=== PATIENT | female | born 1955 | race Caucasian/White ===

== ENCOUNTER 2019-07-16 10:53 | Emergency (ER) | payer BC ==
[2019-07-16 11:38] VITALS: BP 145/87; PULSE 81
--- NOTE | 2019-07-16 11:44 | EDM.PDOC ---
ED HPI GENERAL MEDICAL PROBLEM - General Chief Complaint: Lower Extremity Injury/Pain Stated Complaint: LEFT ANKET TWISTED Time Seen by Provider: 07/16/19 10:55 Source of Information: Reports: Patient History Limitations: Reports: No Limitations - History of Present Illness INITIAL COMMENTS - FREE TEXT/NARRATIVE: HISTORY AND PHYSICAL: History of present illness: Patient is a 64-year-old female who presents to the ED today with concern of left ankle injury that occurred yesterday. Patient states that she was trying to kick an object out of her way in the living room when she twisted her left ankle and felt a "pop "patient states she did not completely fall and she caught herself. Patient states since then she has had pain of her left ankle. Patient states she did have a walking boot and crutches at home which she has been using since which has been helping alleviate some of her symptoms. Patient denies any dizziness or lightheaded before onset of twisting her ankle. Patient denies any other symptoms or concerns. Patient denies fever, chills, chest pain, shortness of breath, or cough. Denies headache, neck stiff ness, change in vision, syncope, or near syncope. Denies nausea, vomiting, abdominal pain, diarrhea, constipation, or dysuria. Has not noted any blood in urine or stool. Patient has been eating and drinking appropriately. Review of systems: As per history of present illness and below otherwise all systems reviewed and negative. Past medical history: As per history of present illness and as reviewed below otherwise noncontributory. Surgical history: As per history of present illness and as reviewed below otherwise noncontributory. Social history: See social history for further information Family history: As per history of present illness and as reviewed below otherwise noncontributory. Physical exam: General: Patient is alert, oriented, and in no acute distress. Patient sitting comfortably on exam table. HEENT: Atraumatic, normocephalic, pupils equal and reactive bilaterally, negative for conjunctival pallor or scleral icterus, mucous membranes moist, TMs normal bilaterally, throat clear, neck supple, nontender, trachea midline. No drooling or trismus noted. No meningeal signs. No hot potato voice noted. Lungs: Clear to auscultation, breath sounds equal bilaterally, chest nontender. Heart: S1S2, regular rate and rhythm without overt murmur Abdomen: Soft, nondistended, nontender. Negative for masses or hepatosplenomegaly. Negative for costovertebral tenderness. Pelvis: Stable nontender. Genitourinary: Deferred. Rectal: Deferred. Skin: Intact, warm, dry. No lesions or rashes noted. Extremities: There is mild edema of both the lateral and medial malleolus of the left ankle with mild to moderate pain with palpation of this area. Dorsalis pedis and posterior tibial pulses are grossly intact of the left lower extremity with capillary refill less than 2 seconds. Otherwise, atraumatic, negative for cords or calf pain. Neurovascular unremarkable. Neuro: Awake, alert, oriented. Cranial nerves II through XII unremarkable. Cerebellum unremarkable. Motor and sensory unremarkable throughout. Exam nonfocal. Notes: I did call and speak to orthopedic provider Dr. Penn and thoroughly discussed patient's case. He states that patient can continue to wear the boot but she is to be nonweightbearing. Patient does have crutches available with her today in the ED. Dr. Penn states he wants to see patient in the clinic tomorrow. I discussed this with patient and she states that she prefers to have a splint as she worries that she will try to put weight on her foot she continues to use the walking boot that she has. Discussed importance for follow-up with Dr. Penn in the clinic tomorrow. Voices understanding and is agreeable to plan of care. Denies any further questions or concerns at this time. Diagnostics: Foot and ankle XR Therapeutics: Posterior mold short splint placed by nursing staff Prescription: None Impression: Lateral malleolus fracture, left Plan: 1. Rest, ice, elevate the affected extremity. You can apply ice 15 minutes on, 15 minutes off. Do not put any weight on the foot until orthopedic evaluation. 2. Tylenol and/or Ibuprofen as directed for pain management or discomfort. 3. Follow up with the Orthopedic provider tomorrow as discussed. Call the clinic to establish appointment time for tomorrow. The number has been provided above. 4. Return to the ED as needed and as discussed. Definitive disposition and diagnosis as appropriate pending reevaluation and review of above. 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 Musculoskeletal History: Reports: Fracture Other Musculoskeletal History: left ankle Neurological History: Reports: None Psychiatric History: Reports: None Endocrine/Metabolic History: Reports: Hypothyroidism Hematologic History: Reports: None Immunologic History: Reports: None Oncologic (Cancer) History: Reports: None Dermatologic History: Reports: None - Past Surgical History Head Surgeries/Procedures: Reports: None Cardiovascular Surgical History: Reports: None Respiratory Surgical History: Reports: None Female Surgical History: Reports: Breast Biopsy, Hysterectomy Endocrine Surgical History: Reports: None Neurological Surgical History: Reports: None Oncologic Surgical History: Reports: None Social & Family History - Tobacco Use Smoking Status *Q: Never Smoker Second Hand Smoke Exposure: No - Caffeine Use Caffeine Use: Reports: None - Recreational Drug Use Recreational Drug Use: No Review of Systems - Review of Systems Review Of Systems: Comprehensive ROS is negative, except as noted in HPI. ED EXAM, GENERAL - Physical Exam Exam: See Below (see dictation) Course - Vital Signs Last Recorded V/S: Last Vital Signs Temp 97.8 F 07/16/19 11:36 Pulse 81 07/16/19 11:36 Resp 18 07/16/19 11:36 BP 145/87 H 07/16/19 11:36 Pulse Ox 98 07/16/19 11:36 Departure - Departure Time of Disposition: 12:53 Disposition: Home, Self-Care 01 Clinical Impression: Lateral malleolar fracture Qualifiers: Encounter type: initial encounter Fracture type: closed Fracture alignment: nondisplaced Laterality: left Qualified Code(s): S82.65XA - Nondisplaced fracture of lateral malleolus of left fibula, initial encounter for closed fracture - Discharge Information Referrals: Ayana Hammonds MD [Primary Care Provider] - Forms: ED Department Discharge Additional Instructions: The following information is given to patients seen in the emergency department who are being discharged to home. This information is to outline your options for follow-up care. We provide all patients seen in our emergency department with a follow-up referral. The need for follow-up, as well as the timing and circumstances, are variable depending upon the specifics of your emergency department visit. If you don't have a primary care physician on staff, we will provide you with a referral. We always advise you to contact your personal physician following an emergency department visit to inform them of the circumstance of the visit and for follow-up with them and/or the need for any referrals to a consulting specialist. The emergency department will also refer you to a specialist when appropriate. This referral assures that you have the opportunity for follow-up care with a specialist. All of these measure are taken in an effort to provide you with optimal care, which includes your follow-up. Under all circumstances we always encourage you to contact your private physician who remains a resource for coordinating your care. When calling for follow-up care, please make the office aware that this follow-up is from your recent emergency room visit. If for any reason you are refused follow-up, please contact the [facility] Emergency Department at and asked to speak to the emergency department charge nurse. [facility] [address] [place] [address] [address] [facility], Dr. Penn [facility] Professional [facility] [address] [place] [address], [address] [place] [address] 1. Rest, ice, elevate the affected extremity. You can apply ice 15 minutes on, 15 minutes off. Do not put any weight on the foot until orthopedic evaluation. 2. Tylenol and/or Ibuprofen as directed for pain management or discomfort. 3. Follow up with the Orthopedic provider tomorrow as discussed. Call the clinic to establish appointment time for tomorrow. The number has been provided above. 4. Return to the ED as needed and as discussed. Sepsis Event Note - Evaluation Sepsis Screening Result: No Definite Risk - Focused Exam Vital Signs: Vital Signs Temp Pulse Resp BP Pulse Ox 07/16/19 11:36 97.8 F 81 18 145/87 H 98 Date Exam was Performed: 07/16/19 Time Exam was Performed: 12:53
--- NOTE | 2019-07-16 12:03 | CR ---
Left ankle: 3 views left ankle were obtained. Comparison: Previous left ankle study of 12/15/09. Slightly displaced lateral malleolus fracture is seen. Soft tissue swelling is noted. Mild shifting of the tibia in a medial direction is seen compatible with unstable ankle mortise. Small plantar spur is noted. Minimal fracture off the posterior malleolus is also noted. Impression: 1. Lateral malleolus fracture with mild displacement and unstable ankle mortise. 2. Minimal fracture off the posterior malleolus. 3. Other findings as noted above. Diagnostic code #3 This report was dictated in [place] Standard Time
--- NOTE | 2019-07-16 12:29 | CR ---
Left foot: 2 views of the left foot were obtained. Comparison: No prior left foot exam. Joint space narrowing noted within the first MTP joint with minimal osteophytes. Small plantar spur is noted. No acute fracture or other abnormality is appreciated. Impression: 1. Degenerative change as noted above. 2. Small plantar spur. 3. Nothing acute is appreciated on two-view left foot exam. Diagnostic code #2 This report was dictated in [place] Standard Time
== END 2019-07-16 13:37 | disposition home or self-care (01) ==
LOC: MW.ED 10:53
DX: S82.65XA Nondisplaced fracture of lateral malleolus of left fibula, initial encounter for closed fracture (principal); E03.9 Hypothyroidism, unspecified; Z79.899 Other long term (current) drug therapy; X50.1XXA Overexertion from prolonged static or awkward postures, initial encounter
CPT/HCPCS: 29515; 73610-26-LT; 73610-LT; 73620-26-LT; 73620-LT; 99283-25

== ENCOUNTER 2019-07-18 12:25 | Day surgery (SDC) | payer BC ==
[2019-07-18] MEDS ORDERED: fentaNYL 100 MCG/2 ML SDV ONE ×3 (12:53→15:37)
[2019-07-18] MEDS ORDERED: Midazolam 1 MG/ML 2 ML SDV ONE (12:53)
[2019-07-18] MEDS ORDERED: Ondansetron 4 MG/2 ML SDV ONE (12:59)
[2019-07-18] MEDS ORDERED: Propofol 200 MG/20 ML SDV ONE ×2 (12:59→15:36)
[2019-07-18] MEDS ORDERED: Lidocaine 2% 5 ML SDV ONE (12:59)
[2019-07-18] MEDS ORDERED: Rocuronium 100 MG/10 ML Syringe ONE (13:00)
[2019-07-18] MEDS ORDERED: Lactated Ringers 1,000 ML IV SCH (13:15)
[2019-07-18] MEDS ORDERED: ceFAZolin 2 GM in Premix Bag 1 BAG IV SCH (13:15)
--- NOTE | 2019-07-18 13:33 | PCM.PREANE ---
Preanesthetic Assessment - Anesthesia/Transfusion/Family Hx Anesthesia History: Prior Anesthesia Without Reaction Family History of Anesthesia Reaction: No Transfusion History: No Prior Transfusion(s) Intubation History: Unknown - Review of Systems General: No Symptoms Pulmonary: No Symptoms Cardiovascular: No Symptoms Gastrointestinal: No Symptoms Neurological: No Symptoms Other: Reports: None - Physical Assessment Vital Signs: Last Vital Signs Temp 36.2 C 07/18/19 13:01 Pulse 68 07/18/19 13:01 Resp 16 07/18/19 13:01 BP 145/85 H 07/18/19 13:01 Pulse Ox 97 07/18/19 13:01 Height: 5 ft 10 in Weight: 83.915 kg ASA Class: 2 Mental Status: Alert & Oriented x3 Airway Class: Mallampati = 1 Dentition: Reports: Normal Dentition, [place](s) (lower right and left (back)) Thyro-Mental Finger Breadths: 3 Mouth Opening Finger Breadths: 3 ROM/Head Extension: Full Lungs: Clear to Auscultation, Normal Respiratory Effort Cardiovascular: Regular Rate, Regular Rhythm - Allergies Allergies/Adverse Reactions: Allergies Allergy/AdvReac Type Severity Reaction Status Date / Time No Known Allergies Allergy Verified 07/17/19 16:32 - Blood Blood Available: No - Anesthesia Plan Pre-Op Medication Ordered: None - Acknowledgements Anesthesia Type Planned: General Anesthesia (popliteal nerve block for postoperative pain control) Pt an Appropriate Candidate for the Planned Anesthesia: Yes Alternatives and Risks of Anesthesia Discussed w Pt/Guardian: Yes Pt/Guardian Understands and Agrees with Anesthesia Plan: Yes PreAnesthesia Questionnaire HEENT History: Reports: Allergic Rhinitis Other HEENT History: wears glasses Cardiovascular History: Reports: None Other Cardiovascular History: has had a heart murmur since childhood- very hard to hear- does not cause any symptoms Respiratory History: Reports: None Gastrointestinal History: Reports: Colon Polyp Genitourinary History: Reports: None 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 Musculoskeletal History: Reports: Fracture Other Musculoskeletal History: left ankle Neurological History: Reports: None Psychiatric History: Reports: None Endocrine/Metabolic History: Reports: Hypothyroidism Hematologic History: Reports: None Immunologic History: Reports: None Oncologic (Cancer) History: Reports: None Dermatologic History: Reports: None - Past Surgical History Cardiovascular Surgical History: Reports: None Respiratory Surgical History: Reports: None GI Surgical History: Reports: Appendectomy Female Surgical History: Reports: Breast Biopsy, Hysterectomy - SUBSTANCE USE Smoking Status *Q: Never Smoker Recreational Drug Use History: No - HOME MEDS Home Medications: Home Meds Levothyroxine Sodium [Levoxyl] 200 mcg PO QAM 09/09/15 [History] oxyCODONE HCl/Acetaminophen [Percocet 5-325 mg Tablet] 1 each PO Q6HR #28 tablet 07/18/19 [Rx] - CURRENT (IN HOUSE) MEDS Current Meds: Current Medications Cefazolin Sodium/Dextrose 2 gm (/ Premix) 50 mls @ 100 mls/hr IV ONCALL MERY Lactated Ringer's (Ringers, Lactated) 1,000 mls @ 100 mls/hr IV ASDIRECTED MERY Discontinued Medications Fentanyl (Sublimaze) Confirm Administered Dose 100 mcg .ROUTE .STK-MED ONE Stop: 07/18/19 12:54 Lidocaine (Xylocaine-Mpf 2%) Confirm Administered Dose 5 ml .ROUTE .STK-MED ONE Stop: 07/18/19 13:00 Midazolam HCl (Versed 1 Mg/Ml) Confirm Administered Dose 2 mg .ROUTE .STK-MED ONE Stop: 07/18/19 12:54 Ondansetron HCl (Zofran) Confirm Administered Dose 4 mg .ROUTE .STK-MED ONE Stop: 07/18/19 13:00 Propofol (Diprivan 20 Ml) Confirm Administered Dose 200 mg .ROUTE .STK-MED ONE Stop: 07/18/19 13:00 Rocuronium [place] (Zemuron) Confirm Administered Dose 100 mg .ROUTE .STK-MED ONE Stop: 07/18/19 13:01
[2019-07-18] MEDS ORDERED: Bupivacaine 0.5%/EPINEPHrine 1:200,000 10 ML SDV ONE (13:42)
[2019-07-18] MEDS ORDERED: Glycopyrrolate 0.2 MG/ML SDV ONE ×2 (14:58→15:15)
[2019-07-18] MEDS ORDERED: Ketorolac 30 MG/ML SDV ONE ×2 (14:59)
[2019-07-18] MEDS ORDERED: EPINEPHrine 1:10,000 1 MG/10 ML Syringe IVPUSH PRN (15:18)
[2019-07-18] MEDS ORDERED: Naloxone 0.4 MG/ML Syringe IVPUSH PRN (15:18)
[2019-07-18] MEDS ORDERED: Atropine 0.1 MG/ML 10 ML Syringe IVPUSH PRN ×2 (15:18)
[2019-07-18] MEDS ORDERED: fentaNYL 100 MCG/2 ML SDV IVPUSH PRN (15:18)
[2019-07-18] MEDS ORDERED: Albuterol 0.083% 2.5 MG/3 ML Neb Soln NEB PRN (15:18)
[2019-07-18] MEDS ORDERED: 50% Dextrose in Water 50 ML Syringe IVPUSH PRN (15:18)
--- NOTE | 2019-07-18 15:23 | PCM.OPNOTE ---
- General Post-Op/Procedure Note Date of Surgery/Procedure: 07/18/19 Operative Procedure(s): orif left distal fibula Pre Op Diagnosis: left distal fibula fracture Post-Op Diagnosis: Same Anesthesia Technique: General ET Tube Primary Surgeon: Zachariah Penn Painter Airbrush: Eryn Diamond EBL in mLs: 25 Complications: None Condition: Good
--- NOTE | 2019-07-18 16:32 | PCM.PRNOTE ---
- Free Text/Narrative Note: Block start [id number] Popiteal Block placed to right leg for post op pain control per surgeon request along with patient request. Bupivacaine 0.5 % with epi 30 ml injected around popiteal nerve while using ultrasound guided view. Pt had no adverse reactions VS remained stable. Negative aspiration every 5 ml of injection. Sterile technique used Chloroprep. 20 g stimiplex needle used. Standard monitors applied while doing block
--- NOTE | 2019-07-18 16:37 | PCM.POSTAN ---
POST ANESTHESIA ASSESSMENT - MENTAL STATUS Mental Status: Alert, Oriented - VITAL SIGNS Vital Signs: Last Vital Signs Temp 98.1 F 07/18/19 15:51 Pulse 73 07/18/19 16:31 Resp 18 07/18/19 16:31 BP 134/67 07/18/19 16:31 Pulse Ox 95 07/18/19 16:31 - RESPIRATORY Respiratory Status: Respiratory Rate WNL, Airway Patent, O2 Saturation Stable - CARDIOVASCULAR CV Status: Pulse Rate WNL, Blood Pressure Stable - GASTROINTESTINAL GI Status: No Symptoms - PAIN Pain Score: 1 - POST OP HYDRATION Hydration Status: Adequate & Stable - OBSERVATIONS Free Text/Narrative:: No anesthesia complications
[2019-07-18 17:30] VITALS: BP 123/69; PULSE 73
--- NOTE | 2019-07-18 17:44 | PCM48HPAN ---
Post Anesthesia Note - EVALUATION WITHIN 48HRS OF ANESTHETIC Vital Signs in Normal Range: Yes Patient Participated in Evaluation: Yes Respiratory Function Stable: Yes Airway Patent: Yes Cardiovascular Function Stable: Yes Hydration Status Stable: Yes Pain Control Satisfactory: Yes Nausea and Vomiting Control Satisfactory: Yes Mental Status Recovered: Yes Vital Signs: Last Vital Signs Temp 99.3 F 07/18/19 16:35 Pulse 73 07/18/19 17:29 Resp 16 07/18/19 17:29 BP 123/69 07/18/19 17:29 Pulse Ox 98 07/18/19 17:29 - COMMENTS/OBSERVATIONS Free Text/Narrative:: Pt stable at this time. Pain 0/10. No anesthesia concerns noted.
--- NOTE | 2019-07-18 18:53 | OR ---
SURGEON: Zachariah Penn DATE OF PROCEDURE: 07/18/2019 PREOPERATIVE DIAGNOSIS: Left distal fibular fracture, closed. POSTOPERATIVE DIAGNOSIS: Left distal fibular fracture, closed. PROCEDURE: Open reduction and internal fixation, left distal fibula. PRIMARY SURGEON: Zachariah Penn DO. OUTCOMES ANALYST: BARBIE Vilchis. ROLE OF OUTCOMES ANALYST: Nurse practitioner, BARBIE Vilchis, played an essential role in assisting in this case, helping to position the patient, retract structures as needed, as well as suturing and cutting sutures as indicated. Her presence improved patient's safety and decreased operative time. ANESTHESIA: General endotracheal intubation. FLUID: Lactated Ringer's solution. ESTIMATED BLOOD LOSS: 25 mL. COMPLICATIONS: None. SPECIMEN: None. DISCHARGE DISPOSITION: Stable to PACU. HISTORY AND INDICATIONS FOR THE PROCEDURE: The patient was seen through the ER and then referred to the clinic. Preoperative imaging confirmed the above-mentioned diagnosis. Risks and benefits of the procedure were explained to the patient. Informed consent was obtained. DETAILS OF PROCEDURE: The patient was seen preoperatively by myself and the Anesthesia staff in the preoperative holding area where the operative site was marked. She was brought to the operative suite by the Anesthesia staff where general anesthesia was administered. All extremities were found to be well padded. A well-padded tourniquet was placed onto her left thigh. The left lower extremity was then prepped and draped in a sterile manner. Time-out was called identifying the correct patient, the correct procedure, the correct site, and that antibiotics had been given within appropriate period of time. An incision was made about 1 cm distal to the fibula and then carried proximally about 10 cm through the skin. The superficial peroneal nerve was visualized and avoided and held out of the way by Gelpi retractor. The fracture site was visualized. I then opened this up with a [place]. I then irrigated and removed any extra blood clots. I then used bone tenaculums to partially reduce this in the AP direction and the distal fragment was slightly medial, so I placed a larger K-wire up through the fibula into the proximal shaft to hold it in place, which it did nicely. I then placed a 6-hole plate. I placed one proximal cortical and then two distal cortical cancellous screws and then using AP fluoroscopy was sterilely draped, confirmed good placement. I then drilled and filled the rest of the screws. I then stressed the syndesmosis. The syndesmosis was intact without any widening throughout range of motion. I then took my final AP and lateral films, copiously irrigated with saline, and then my trading assistant closed with 2-0 Vicryl interrupted sutures followed by skin dinorah followed by Betadine-soaked Adaptic, fluffs, and an Roly wrap. The patient was then allowed to awaken from general anesthesia and taken to the PACU in stable condition. [id number] / MODL /[id number]
--- NOTE | 2019-07-19 05:51 | CR ---
Left ankle: 2 fluoroscopic spot views were obtained of the left ankle utilizing C-arm device. Comparison: Prior left ankle exam of 07/16/19. Study shows previous lateral malleolus fracture with plate and screws in place affixing the fracture. Ankle mortise is symmetric. Fluoroscopy time given as 18.1 seconds. Impression: 1. Procedural study as noted above. Diagnostic code #2 This report was dictated in MDT
== END 2019-07-18 18:15 | disposition home or self-care (01) ==
LOC: MW.SDS 12:25
PROVIDERS: ATTEND Orthopaedic Surgery
DX: S82.832A Other fracture of upper and lower end of left fibula, initial encounter for closed fracture (principal); E03.9 Hypothyroidism, unspecified; Z87.891 Personal history of nicotine dependence; W01.0XXA Fall on same level from slipping, tripping and stumbling without subsequent striking against object, initial encounter; Z79.890 Hormone replacement therapy
CPT/HCPCS: 27792; 76000; C1713; J1885; J2001; J2250; J2405; J2704; J3010; J3490; J7120